=== PATIENT | male | born 1980 | race Caucasian/White ===

== ENCOUNTER 2021-03-14 16:25 | Emergency (ER) | payer OTHER ==
[~2021-03-14] VITALS: Ht 182.8 cm; Wt 99.8 kg
[2021-03-14] MEDS ORDERED: METHOCARBAMOL500 M1 PO (19:44)
[2021-03-14] MEDS ORDERED: IBUPROFEN600 MG PO (19:44)
== END 2021-03-14 19:43 | disposition home or self-care (01) ==
LOC: ED 16:25
DX: S13.9XXA Sprain of joints and ligaments of unspecified parts of neck, initial encounter (principal); S00.93XA Contusion of unspecified part of head, initial encounter; Z88.0 Allergy status to penicillin; Z88.5 Allergy status to narcotic agent; Z88.6 Allergy status to analgesic agent; Z88.8 Allergy status to other drugs, medicaments and biological substances; V89.2XXA Person injured in unspecified motor-vehicle accident, traffic, initial encounter; Y93.89 Activity, other specified; Y92.89 Other specified places as the place of occurrence of the external cause; Y99.8 Other external cause status